=== PATIENT | male | born 1975 ===

== ENCOUNTER 2018-11-24 13:05 | Emergency (ER) | payer OTHER ==
[2018-11-24] MEDS ORDERED: Oxycodone/Acetaminophen 5/325 mg Tab PO STA (14:34)
[2018-11-24] MEDS ORDERED: Oxycodone/Acetaminophen 5/325 mg Tab ONE (14:47)
--- NOTE | 2018-11-24 15:26 | RAD ---
PROCEDURE: Radiographs of the Left Shoulder, three views HISTORY: fall COMPARISON: None available FINDINGS: BONES: No acute displaced fracture. The distal clavicle and underlying ribs appear intact. JOINTS: No acute dislocation. SOFT TISSUES: Soft tissues appear unremarkable. No evidence of radiopaque foreign body. IMPRESSION: No acute displaced fracture or dislocation evident. If symptoms persist or if there is continued clinical concern, x-ray follow-up in 7-10 days should be considered.
--- NOTE | 2018-11-24 15:29 | RAD ---
PROCEDURE: Left Knee Radiographs. Three views. HISTORY: fall COMPARISON: No prior. FINDINGS: BONES: No acute displaced fracture. Degenerative changes including tenting of the intercondylar notch/osteophyte formation. JOINTS: No dislocation. JOINT EFFUSION: No significant joint effusion. OTHER FINDINGS: None. IMPRESSION: No acute displaced fracture, dislocation, or significant joint effusion identified. If symptoms persist, or if there is continued clinical concern, x-ray follow-up in 7-10 days should be considered.
[2018-11-24 15:31] LABS: BASO # 0.1 K/uL (0.0-0.2); BASO % 0.8 % (0.0-2.0); EOS # 0.3 K/uL (0.0-0.7); EOS % 4.6 % (0.0-4.0); HEMOGLOBIN 14.7 g/dL (12.0-18.0); LYMPH # 1.8 K/uL (1.0-4.3); LYMPH % 28.4 % (20.0-40.0); MEAN CELL VOLUME 89.1 fL (80.0-94.0); MEAN CORPUSCULAR HEMOGLOBIN 30.9 pg (27.0-31.0); MEAN CORPUSCULAR HGB CONC 34.6 g/dL (33.0-37.0); MEAN PLATELET VOLUME 8.4 fL (7.2-11.7); MONO # 0.5 K/uL (0.0-0.8); MONO % 8.2 % (0.0-10.0); NEUT # 3.7 K/uL (1.8-7.0); NRBC % 0.1 % (0.0-2.0); RBC 4.75 Mil/uL (4.40-5.90); RED CELL DISTRIBUTION WIDTH 13.5 % (11.5-14.5); WHITE BLOOD COUNT 6.3 K/uL (4.8-10.8)
--- NOTE | 2018-11-24 15:35 | RAD ---
PROCEDURE: Left ankle radiographs. Three views. Left foot radiographs. Three views. HISTORY: fall COMPARISON: None FINDINGS: BONES: No acute displaced fracture. JOINTS: No dislocation. SOFT TISSUES: Unremarkable. No evidence of radiopaque foreign body. OTHER FINDINGS: None. IMPRESSION: No acute displaced fracture, dislocation, or significant joint effusion identified. If symptoms persist or if there is clinical concern, x-ray follow-up in 7-10 days should be considered.
[2018-11-24 15:41] LABS: PROTHROMBIN TIME 11.3 SECONDS (9.7-12.2)
[2018-11-24 15:46] LABS: ALB/GLOB RATIO 1.5 (1.0-2.1); ALBUMIN 4.7 g/dL (3.5-5.0); ALT/SGPT 35 U/L (21-72); AST/SGOT 48 U/L (17-59); BLOOD UREA NITROGEN 20 mg/dL (9-20); CALCIUM 9.7 mg/dl (8.6-10.4); GFR NON-AFRICAN AMERICAN > 60
[2018-11-24] MEDS ORDERED: Iodixanol 320 MG/ML 100 ML BOTTLE IV ONE (15:54)
--- NOTE | 2018-11-24 16:03 | C.PDOC ---
History Of Present Illness 43 y/o male presents via EMS for evaluation s/p fall just prior to arrival. Patient states he fell from scaffolding onto his left side, approximately 15 feet. He believes he hit his head but is unsure of any LOC. Patient denies pain in his abdomen or chest. Currently he complains of a headache, neck pain, left ankle/foot pain, left knee pain, left hip pain, and left shoulder pain. No other injuries. - HPI Time Seen by Provider: 11/24/18 13:27 Chief Complaint (Nursing): Trauma History Per: Patient History/Exam Limitations: no limitations Onset/Duration Of Symptoms: Mins Injury Occurred (Timing): Just Before Arrival Location Of Injury: Left: Ankle, Foot, Hip, Knee, Neck Past Medical History Reviewed: Historical Data, Nursing Documentation, Vital Signs Vital Signs: Last Vital Signs Temp 98.8 F 11/24/18 13:08 Pulse 80 11/24/18 13:08 Resp 18 11/24/18 13:08 BP 138/103 H 11/24/18 13:08 Pulse Ox 100 11/24/18 13:08 Surgical History: No Surg Hx Family History: States: Unknown Family Hx - Social History Hx Tobacco Use: No Hx Alcohol Use: No Hx Substance Use: No - Immunization History Hx Tetanus Toxoid Vaccination: No Hx Influenza Vaccination: No Hx Pneumococcal Vaccination: No Review Of Systems Constitutional: Negative for: Fever Eyes: Negative for: Vision Change Cardiovascular: Negative for: Chest Pain, Palpitations Respiratory: Negative for: Shortness of Breath Gastrointestinal: Negative for: Vomiting, Abdominal Pain Genitourinary: Negative for: Incontinence, Hematuria Musculoskeletal: Positive for: Neck Pain, Shoulder Pain (left), Leg Pain (left hip, left knee), Foot Pain (left ankle/foot) Neurological: Positive for: Headache. Negative for: Weakness, Numbness, Change in Speech Physical Exam - Physical Exam Appears: Non-toxic, No Acute Distress Skin: Warm, Dry, No Ecchymosis Head: Atraumatic, Normacephalic, No Swelling (or hematoma), No Laceration Eye(s): bilateral: Normal Inspection, PERRL, EOMI Oral Mucosa: Moist Teeth: Normal Dentition, No Tender To Palpation, No Loose Neck: No Midline Cervical Tenderness, Paracervical Tenderness (L paracervical tenderness and muscle spasm), Supple Chest: Symmetrical, No Tenderness Cardiovascular: Rhythm Regular, No Murmur Respiratory: Normal Breath Sounds, No Accessory Muscle Use Gastrointestinal/Abdominal: Soft, No Tenderness, No Distention, No Guarding Back: No CVA Tenderness, No Vertebral Tenderness Extremity: Tenderness (to left lateral malleolus, left lateral foot, left lateral hip, left shoulder; minimal left knee tenderness on palpation), Capillary Refill (less than 2 sec), No Deformity, No Swelling Pulses: Left Dorsalis Pedis: Normal, Right Dorsalis Pedis: Normal Neurological/Psych: Oriented x3, Normal Speech, Normal Cranial Nerves, Other (No focal deficits, moving extremities spontaneously) ED Course And Treatment - Laboratory Results Result Diagrams: 11/24/18 15:25 11/24/18 15:25 O2 Sat by Pulse Oximetry: 100 (on RA) Pulse Ox Interpretation: Normal - Other Rad L Shoulder XR X-Ray: Read By Radiologist Interpretation: Accession No. : [id number]. Patient Name / ID : GENE FLEMING / [id number]. Exam Date : 11/24/2018 14:37:01 ( Approved ). Study Comment : Sex / Age : M / 43Y. Creator : Maxine Crump MD. Dictator : Maxine Crump MD. Ballast Inspector : Farm Operator : Maxine Crump MD. Approver2 : Report Date : 11/24/2018 15:23:26. My Comment : . PROCEDURE: Radiographs of the Left Shoulder, three views. HISTORY: fall. COMPARISON: None available. FINDINGS: BONES: No acute displaced fracture. The distal clavicle and underlying ribs appear intact. JOINTS: No acute dislocation. SOFT TISSUES: Soft tissues appear unremarkable. No evidence of radiopaque foreign body. IMPRESSION: No acute displaced fracture or dislocation evident. L Foot XR X-Ray: Read By Radiologist Interpretation: Accession No. : [id number]. Patient Name / ID : GENE FLEMING / [id number]. Exam Date : 11/24/2018 14:37:25 ( Approved ). Study Comment : Sex / Age : M / 43Y. Creator : Maxine Crump MD. Dictator : Maxine Crump MD. Ballast Inspector : Farm Operator : Maxine Crump MD. Approver2 : Report Date : 11/24/2018 15:32:11. My Comment : . PROCEDURE: Left ankle radiographs. Three views. Left foot radiographs. Three views. HISTORY: fall. COMPARISON: None. FINDINGS: BONES: No acute displaced fracture. JOINTS: No dislocation. SOFT TISSUES: Unremarkable. No evidence of radiopaque foreign body. OTHER FINDINGS: None. IMPRESSION: No acute displaced fracture, dislocation, or significant joint effusion identified. L Ankle XR X-Ray: Read By Radiologist Interpretation: Accession No. : [id number]. Patient Name / ID : GENE FLEMING / [id number]. Exam Date : 11/24/2018 14:37:38 ( Approved ). Study Comment : Sex / Age : M / 43Y. Creator : Maxine Crump MD. Dictator : Maxine Crump MD. Ballast Inspector : Farm Operator : Maxine Crump MD. Approver2 : Report Date : 11/24/2018 15:32:11. My Comment : . PROCEDURE: Left ankle radiographs. Three views. Left foot radiographs. Three views. HISTORY: fall. COMPARISON: None. FINDINGS: BONES: No acute displaced fracture. JOINTS: No dislocation. SOFT TISSUES: Unremarkable. No evidence of radiopaque foreign body. OTHER FINDINGS: None. IMPRESSION: No acute displaced fracture, dislocation, or significant joint effusion identified. L Knee XR X-Ray: Read By Radiologist Interpretation: Accession No. : [id number]. Patient Name / ID : GENE FLEMING / [id number]. Exam Date : 11/24/2018 14:38:23 ( Approved ). Study Comment : Sex / Age : M / 43Y. Creator : Maxine Crump MD. Dictator : Maxine Crump MD. Ballast Inspector : Farm Operator : Maxine Crump MD. Approver2 : Report Date : 11/24/2018 15:25:25. My Comment : . PROCEDURE: Left Knee Radiographs. Three views. HISTORY: fall. COMPARISON: No prior. FINDINGS: BONES: No acute displaced fracture. Degenerative changes including tenting of the intercondylar notch/osteophyte formation. JOINTS: No dislocation. JOINT EFFUSION: No significant joint effusion. OTHER FINDINGS: None. IMPRESSION: No acute displaced fracture, dislocation, or significant joint effusion identified. - CT Scan/US CT Head Other Rad Studies (CT/US): Read By Radiologist, Radiology Report Reviewed CT/US Interpretation: Accession No. : [id number]. Patient Name / ID : GENE FLEMING / [id number]. Exam Date : 11/24/2018 16:02:05 ( Approved ). Study Comment : Sex / Age : M / 43Y. Creator : Sarahy Hicks. Dictator : Tameka Singh MD. Ballast Inspector : Farm Operator : Tameka Singh MD. Approver2 : Report Date : 11/24/2018 16:09:41. My Comment : . Date of service: 11/24/2018. PROCEDURE: CT HEAD WITHOUT CONTRAST. HISTORY: Fall from 15 ft. COMPARISON: None available. TECHNIQUE: Axial computed tomography images were obtained through the head/brain without intravenous contrast. Radiation dose: Total exam DLP = 1138.37 mGy-cm. This CT exam was performed using one or more of the following dose reduction techniques: Automated exposure control, adjustment of the mA and/or kV according to patient size, and/or use of iterative reconstruction technique. FINDINGS: HEMORRHAGE: No intracranial hemorrhage. BRAIN: Barney-white matter differentiation is preserved. There is no mass, mass effect or abnormal extra-axial fluid collection. There is no territorial infarction. The midline sagittal structures are normal. VENTRICLES: The ventricles are normal in size, shape and configuration. CALVARIUM: There is no calvarial fracture or extracranial soft tissue swelling. PARANASAL SINUSES: There is scattered mucoperiosteal thickening in the ethmoid air cells. The remaining included paranasal sinuses are clear. MASTOID AIR CELLS: Predominantly clear. OTHER FINDINGS: None. IMPRESSION: No acute intracranial abnormality. CT C-spine Other Rad Studies (CT/US): Read By Radiologist, Radiology Report Reviewed CT/US Interpretation: Accession No. : [id number]. Patient Name / ID : GENE FLEMING / [id number]. Exam Date : 11/24/2018 16:04:28 ( Approved ). Study Comment : Sex / Age : M / 43Y. Creator : Sarahy Hicks. Dictator : Tameka Singh MD. Ballast Inspector : Farm Operator : Tameka Singh MD. Approver2 : Report Date : 11/24/2018 16:13:31. My Comment : . Date of service: 11/24/2018. PROCEDURE: CT Cervical Spine without contrast. HISTORY: Fall from 15 ft. COMPARISON: None available. TECHNIQUE: Axial computed tomography images were obtained of the cervical spine without the use of intravenous contrast. Coronal and sagittal reformatted images were created and reviewed. Radiation dose: Total exam DLP = 503.82 mGy-cm. This CT exam was performed using one or more of the following dose reduction techniques: Automated exposure control, adjustment of the mA and/or kV according to patient size, and/or use of iterative reconstruction technique. FINDINGS: VERTEBRAE: There is str aightening of the cervical spine with loss of normal cervical lordosis. Vertebral alignment is normal. Vertebral height is maintained. There is no acute fracture or traumatic anterior listhesis. Bone mineralization is normal. The craniocervical junction is normal. The atlantoaxial joint is normal. DISCS/SPINAL CANAL/NEURAL FORAMINA: The disc heights are maintained. There is mild asymmetric left uncovertebral joint hypertrophy with mild multilevel neural foraminal narrowing. No central spinal canal stenosis. PARASPINAL SOFT TISSUES: No prevertebral soft tissue thickening. Paraspinous soft tissues are normal. OTHER FINDINGS: No apical pneumothorax. IMPRESSION: No acute fractur e or traumatic anterior listhesis. Straightening of the cervical spine may be positional or related to muscle spasm. CT Chest/abd/pelvis Other Rad Studies (CT/US): Read By Radiologist, Radiology Report Reviewed CT/US Interpretation: Accession No. : [id number]. Patient Name / ID : GENE FLEMING / [id number]. Exam Date : 11/24/2018 16:08:58 ( Approved ). Study Comment : Sex / Age : M / 43Y. Creator : Sarahy Hicks. Dictator : Maxine Crump MD. Ballast Inspector : Farm Operator : Maxine Crump MD. Approver2 : Report Date : 11/24/2018 16:17:19. My Comment : . Date of service: 11/24/2018. CT chest, abdomen, and pelvis with IV contrast. Indication: fall from 15 ft. Technique: Contiguous axial images of the chest, abdomen, and pelvis. Coronal and Sagittal reformats generated and reviewed. This CT exam was performed using 1 or more of the following dose reduction techniques: Automated exposure control, adjustment of the MAA and/or kV according to patient size, and/or use of iterative reconstruction technique. Contrast: 100mL Visipaque IV. Radiation dose: Total exam DLP = 1072.23 MGy-cm. Comparison: None available. Findings: Visualized portions of the inferior thyroid gland appear unremarkable. The mediastinal and hilar vascular structures appear within normal limits. The heart appears within normal limits of size. Bibasilar atelectasis. No pleural effusion or definite pneumothorax evident. No suspicious pulmonary nodules measuring greater than 5 mm. The liver, spleen, kidneys, pancreas, adrenal glands, and gallbladder appear unremarkable. The stomach is nondistended. 12 mm fat containing hernia. The bowel loops appear within normal limits of caliber without evidence of intestinal obstruction. There is no definite free air. The prostate gland measures approximately 2.7 x 3.9 cm. The urinary bladder appears unremarkable. 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 Lucency of the left L1 transverse process which appears corticated on ei ther side consistent with remote injury. Impression: Bibasilar atelectasis. Additional findings as above. Progress Note: X-rays taken of left foot, ankle, knee, and shoulder. 1 tab PO Percocet given for pain. Will obtain CT of Head, C-Spine, and Chest/Abd/Pelvis. Per radiology, CT should be done with IV contrast. Will obtain labs. Imaging reviewed - x-rays are negative for acute fracture. CT shows no acute findings. Cervical soft collar applied. Air cast and crutches by CP and checked by me. Patient is stable to be d/c home with clinic follow up. Patient is ambulatory and w/o neuro deficit. Disposition - Disposition Referrals: [facility] at [facility] [Outside] Disposition: HOME/ ROUTINE Disposition Time: 17:15 Condition: STABLE Additional Instructions: Follow up with PMD/Clinic within 1-2 days. Return to ED if feel worse. Prescriptions: Ibuprofen [Motrin Tab] 600 mg PO Q8 #30 tab traMADol [Ultram] 50 mg PO Q6 #20 tab diaZEpam [Valium] 2 mg PO BID #10 tab Instructions: Ankle Sprain (DC), Contusion (DC), Minor Head Injury (DC), Cervi stoney Sprain (ED) Forms: xTV (Greenlandic), Work Excuse Print Language: KAZAKH - Clinical Impression Clinical Impression: Fall from high place, Multiple contusions, Ankle sprain, Minor head injury, C ervical muscle strain - PA / TRANSPORTATION WORKER / Resident Statement MD/DO has reviewed & agrees with the documentation as recorded. - Scribe Statement The provider has reviewed the documentation as recorded by the Scribkristen Roth All medical record entries made by the Scribe were at my direction and personally dictated by me. I have reviewed the chart and agree that the record accurately reflects my personal performance of the history, physical exam, m edical decision making, and the department course for this patient. I have also personally directed, reviewed, and agree with the discharge instructions and disposition.
--- NOTE | 2018-11-24 16:20 | CT ---
Date of service: 11/24/2018 PROCEDURE: CT HEAD WITHOUT CONTRAST. HISTORY: Fall from 15 ft COMPARISON: None available. TECHNIQUE: Axial computed tomography images were obtained through the head/brain without intravenous contrast. Radiation dose: Total exam DLP = 1138.37 mGy-cm. This CT exam was performed using one or more of the following dose reduction techniques: Automated exposure control, adjustment of the mA and/or kV according to patient size, and/or use of iterative reconstruction technique. FINDINGS: HEMORRHAGE: No intracranial hemorrhage. BRAIN: Barney-white matter differentiation is preserved. There is no mass, mass effect or abnormal extra-axial fluid collection. There is no territorial infarction. The midline sagittal structures are normal. VENTRICLES: The ventricles are normal in size, shape and configuration. CALVARIUM: There is no calvarial fracture or extracranial soft tissue swelling. PARANASAL SINUSES: There is scattered mucoperiosteal thickening in the ethmoid air cells. The remaining included paranasal sinuses are clear MASTOID AIR CELLS: Predominantly clear. OTHER FINDINGS: None. IMPRESSION: No acute intracranial abnormality.
--- NOTE | 2018-11-24 16:27 | CT ---
Date of service: 11/24/2018 PROCEDURE: CT Cervical Spine without contrast HISTORY: Fall from 15 ft COMPARISON: None available. TECHNIQUE: Axial computed tomography images were obtained of the cervical spine without the use of intravenous contrast. Coronal and sagittal reformatted images were created and reviewed. Radiation dose: Total exam DLP = 503.82 mGy-cm. This CT exam was performed using one or more of the following dose reduction techniques: Automated exposure control, adjustment of the mA and/or kV according to patient size, and/or use of iterative reconstruction technique. FINDINGS: VERTEBRAE: There is straightening of the cervical spine with loss of normal cervical lordosis. Vertebral alignment is normal. Vertebral height is maintained. There is no acute fracture or traumatic anterior listhesis. Bone mineralization is normal. The craniocervical junction is normal. The atlantoaxial joint is normal. DISCS/SPINAL CANAL/NEURAL FORAMINA: The disc heights are maintained. There is mild asymmetric left uncovertebral joint hypertrophy with mild multilevel neural foraminal narrowing. No central spinal canal stenosis. PARASPINAL SOFT TISSUES: No prevertebral soft tissue thickening. Paraspinous soft tissues are normal OTHER FINDINGS: No apical pneumothorax. IMPRESSION: No acute fracture or traumatic anterior listhesis. Straightening of the cervical spine may be positional or related to muscle spasm.
[2018-11-24 16:53] VITALS: BP 126/82; PULSE 65; RESP 18; TEMP 98
--- NOTE | 2018-11-24 17:11 | CT ---
Date of service: 11/24/2018 CT chest, abdomen, and pelvis with IV contrast Indication: fall from 15 ft Technique: Contiguous axial images of the chest, abdomen, and pelvis. Coronal and Sagittal reformats generated and reviewed. This CT exam was performed using 1 or more of the following dose reduction techniques: Automated exposure control, adjustment of the MAA and/or kV according to patient size, and/or use of iterative reconstruction technique. Contrast: 100mL Visipaque IV Radiation dose: Total exam DLP = 1072.23 MGy-cm. Comparison: None available Findings: Visualized portions of the inferior thyroid gland appear unremarkable. The mediastinal and hilar vascular structures appear within normal limits. The heart appears within normal limits of size. Bibasilar atelectasis. No pleural effusion or definite pneumothorax evident. No suspicious pulmonary nodules measuring greater than 5 mm. The liver, spleen, kidneys, pancreas, adrenal glands, and gallbladder appear unremarkable. The stomach is nondistended. 12 mm fat containing hernia. The bowel loops appear within normal limits of caliber without evidence of intestinal obstruction. There is no definite free air. The prostate gland measures approximately 2.7 x 3.9 cm. The urinary bladder appears unremarkable. 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 Lucency of the left L1 transverse process which appears corticated on either side consistent with remote injury. Impression: Bibasilar atelectasis. Additional findings as above.
[2018-11-24 17:13] VITALS: O2SAT 100
== END 2018-11-24 18:00 | disposition home or self-care (01) ==
LOC: C.ER 13:05
DX: S16.1XXA Strain of muscle, fascia and tendon at neck level, initial encounter (principal); S09.90XA Unspecified injury of head, initial encounter; S93.402A Sprain of unspecified ligament of left ankle, initial encounter; S90.32XA Contusion of left foot, initial encounter; S70.02XA Contusion of left hip, initial encounter; S40.012A Contusion of left shoulder, initial encounter; S80.02XA Contusion of left knee, initial encounter; W17.89XA Other fall from one level to another, initial encounter
CPT/HCPCS: 70450; 71260; 72125; 73030; 73560; 73610; 73630; 74177; 80053; 85025; 85610; 85730; 99285; Q9967

== ENCOUNTER 2018-12-01 09:25 | Emergency (ER) | payer OTHER ==
[2018-12-01 09:41] VITALS: BMI 30.5
[2018-12-01 09:43] VITALS: O2SAT 98
--- NOTE | 2018-12-01 10:33 | C.PDOC ---
History Of Present Illness 43-year-old male presents to the ED for evaluation of diffuse body pain which began after he sustained a fall at work on 11/24. Patient states he fell off of a scaffold and was brought to [facility] at for evaluation. At the time, he underwent the following: * CT Head * CT Cervical Spine * CT Chest/Abdomen/Pelvis * Shoulder XR * Knee XR * Ankle XR * Foot XR All imaging results were unremarkable. Patient was discharged with instructions to follow up in clinic, which he admits he has not yet done. Patient has been taking pain medication without relief and presents to the ED for further evaluation. He denies new falls/injuries, head injury, LOC, nausea, vomiting, chest pain, SOB, sensory changes. Time Seen by Provider: 12/01/18 09:56 Chief Complaint (Nursing): Back Pain History Per: Patient History/Exam Limitations: no limitations Onset/Duration Of Symptoms: Days Current Symptoms Are (Timing): Still Present Quality Of Discomfort: "Pain" Severity: Moderate Associated Symptoms: None. denies: Incontinence, New Weakness, New Numbness Exacerbating Factor(s): Movement Additional History Per: Patient Past Medical History Reviewed: Historical Data, Nursing Documentation, Vital Signs Vital Signs: Last Vital Signs Temp 98.9 F 12/01/18 09:41 Pulse 75 12/01/18 09:41 Resp 17 12/01/18 09:41 BP 127/85 12/01/18 09:41 Pulse Ox 98 12/01/18 09:41 - Medical History PMH: No Chronic Diseases Surgical History: No Surg Hx Family History: States: No Known Family Hx - Social History Hx Tobacco Use: No Hx Alcohol Use: No Hx Substance Use: No - Immunization History Hx Tetanus Toxoid Vaccination: No Hx Influenza Vaccination: No Hx Pneumococcal Vaccination: No Review Of Systems Constitutional: Negative for: Fever Cardiovascular: Negative for: Chest Pain Respiratory: Negative for: Shortness of Breath Gastrointestinal: Negative for: Nausea, Vomiting, Abdominal Pain Musculoskeletal: Positive for: Other (diffuse body pain s/p fall ) Skin: Negative for: Rash Neurological: Negative for: Weakness, Numbness, Headache, Dizziness, Other (LOC) Physical Exam - Physical Exam Appears: Well, Non-toxic, No Acute Distress, Other (in mild discomfort ) Skin: Normal Color, Warm, Dry Head: Atraumatic, Normacephalic Eye(s): bilateral: Normal Inspection Oral Mucosa: Moist Neck: No Midline Cervical Tenderness, Paracervical Tenderness (mild, to palpation ), No Step Off Deformity, Supple Chest: Symmetrical, No Deformity, No Tenderness Cardiovascular: Rhythm Regular Respiratory: Normal Breath Sounds, No Rales, No Rhonchi, No Wheezing Gastrointestinal/Abdominal: Normal Exam, Bowel Sounds, Soft, No Tenderness Extremity: Normal ROM, Tenderness (mild tenderness to left foot and bilateral shoulders ), Capillary Refill (< 2 sec all digits ), No Deformity, No Swelling Extremity: Bilateral: Normal Color And Temperature, Normal ROM Pulses: Left Radial: Normal, Right Radial: Normal, Left Dorsalis Pedis: Normal, Right Dorsalis Pedis: Normal Neurological/Psych: Oriented x3, Normal Speech, Normal Cognition, Normal Cranial Nerves, No Cerebellar Signs, Normal Motor, Normal Sensation Gait: Other (ambulatory with crutches) ED Course And Treatment O2 Sat by Pulse Oximetry: 98 (on RA) Pulse Ox Interpretation: Normal Progress Note: Patient given IM toradol and PO flexeril. Prior visit and all studies reviewed - neg for acute injuries. Reevaluation Time: 10:40 Reassessment Condition: Improved (On reassessment, patient is resting comfortably and pain has improved. Rxs for toradol and valium given, and patient instructed to not mix these meds with prior meds. He was also instructed to follow up with medical clinic in 1-2 days. He understands he should return to ED if symptoms worsen.) Disposition Counseled Patient/Family Regarding: Diagnosis, Need For Followup, Rx Given - Disposition Referrals: [facility] [Outside] Bridger Holland MD [Staff Provider] - Disposition: HOME/ ROUTINE Disposition Time: 10:45 Condition: STABLE Additional Instructions: FOLLOW UP WITH ORTHOPEDICS WITHIN 1 WEEK OR WITH MEDICAL CLINIC IN 1-2 DAYS USE TORADOL INSTEAD OF IBUPROFEN FOR PAIN USE MEDICATION NEEDED FOR PAIN RETURN TO EMERGENCY ROOM IF SYMPTOMS BECOME WORSE SEGUIR CON ORTOPEDIA DENTRO DE 1 SEMANA O CON LA CLNICA MDICA EN 1-2 GAMINO UTILIZAR TORADOL EN LUGAR DE IBUPROFEN PARA EL DOLOR USE MEDICAMENTOS REILLY SE NECESITA PARA EL DOLOR VUELVA A LA ROBERTH DE EMERGENCIA SI LOS SNTOMAS SE HACEN PEOR Prescriptions: Diazepam [Valium] 2 mg PO BID PRN #14 tablet PRN Reason: musle spasm Ketorolac Tromethamine [Toradol] 10 mg PO BID PRN #30 tab PRN Reason: pain Instructions: Acute Pain, Adult (DC) Forms: [facility] (Ukrainian), General Discharge Instructions Print Language: MALTESE - POA Present On Arrival: Falls Or Trauma - Clinical Impression Clinical Impression: Whole body pain, Arthralgia - Scribe Statement The provider has reviewed the documentation as recorded by the Scribe (Jeniffer Hamilton) Provider Attestation: All medical record entries made by the Scribe were at my direction and personally dictated by me. I have reviewed the chart and agree that the record accurately reflects my personal performance of the history, physical exam, medical decision making, and the department course for this patient. I have also personally directed, reviewed, and agree with the discharge instructions and disposition.
[2018-12-01 11:15] VITALS: BP 139/89; PULSE 82; RESP 18; TEMP 98.1
== END 2018-12-01 10:45 | disposition home or self-care (01) ==
LOC: C.ER 09:25
DX: R52 Pain, unspecified (principal); M25.50 Pain in unspecified joint
CPT/HCPCS: 96372; 99284; J1885